=== PATIENT | female | born 1975 | race Caucasian/White ===

== ENCOUNTER → 2016-07-09 | Outpatient (CLI) | payer MEDICAID | END | disposition home or self-care (01) | LOC: CARD 08:21 | PROVIDERS: ATTEND Student in an Organized Health Care Education/Training Program | DX: G56.03 Carpal tunnel syndrome, bilateral upper limbs (principal) | CPT/HCPCS: 95885; 95908 ==

== ENCOUNTER → 2017-07-22 | Outpatient (CLI) | payer MEDICAID | END | disposition home or self-care (01) | LOC: CARD 09:19 | PROVIDERS: ATTEND Nurse Practitioner Critical Care Medicine | DX: G56.23 Lesion of ulnar nerve, bilateral upper limbs (principal); G62.9 Polyneuropathy, unspecified | CPT/HCPCS: 95886; 95908 ==